=== PATIENT | male | born 1990 | race Caucasian/White ===

== ENCOUNTER 2024-01-02 09:53 | Emergency (ER) | payer SELFPAY ==
[2024-01-02] MEDS: cefTRIAXone 1 GM, Lidocaine 1% 2.1 ML IM ONE (10:45)
== END 2024-01-02 10:55 | disposition home or self-care (01) ==
LOC: VM.ED 09:53
DX: K02.9 Dental caries, unspecified (principal)
CPT/HCPCS: 96372; 99283; J0696; J3490